=== PATIENT | female | born 1960 | race Caucasian/White ===

== ENCOUNTER 2016-08-22 02:51 | Emergency (ER) | payer SELFPAY ==
[~2016-08-22] VITALS: Ht 162.6 cm; Wt 67.0 kg
[2016-08-22 02:56] VITALS: Ht 162.6 cm; Wt 67.0 kg
--- NOTE | 2016-08-22 07:23 | ERA ---
ER Documentation Chief Complaint Date/Time DATE: 08/22/16 TIME: 07:19 Chief Complaint headache after inhaling pesticid spray with skin itchiness since 5pm yeste HPI This is an diabetic, but otherwise healthy 55-year-old female who presents 10 hours after inhaling fumes while trying to kill cockroaches. Patient denies any other medical history. Patient has not taken any medications. Patient denies recent travel, difficulty breathing, fever, change in voice, drooling, dyspnea, hematuria, abdominal pain, chest pain, shortness of breath, diarrhea, constipation, nausea, vomiting, dysgeusia, change in vision/hearing, or headache. Patient has no other complaints at this time. Patient states that she is feeling otherwise well but was brought in by the daughter who wanted her to be evaluated. ROS All systems reviewed and are negative except as per history of present illness. Allergies Allergies: Coded Allergies: No Known Allergy (Unverified , 08/22/16) PMhx/Soc History of Surgery: No Anesthesia Reaction: No Hx Neurological Disorder: No Hx Respiratory Disorders: No Hx Cardiac Disorders: No Hx Psychiatric Problems: No Hx Miscellaneous Medical Probl: Yes (DM) Hx Alcohol Use: Yes Hx Substance Use: No Hx Tobacco Use: No Smoking Status: Never smoker Physical Exam Vitals Vital Signs Date Time Temp Pulse Resp B/P Pulse Ox O2 Delivery O2 Flow Rate FiO2 08/22/16 02:56 98.3 109 20 128/80 99 Physical Exam Const: Healthy-appearing. Well-nourished. Well-developed. No acute distress. Head: Normocephalic, Atraumatic. Eyes: Non-injected; No scleral erythema, discharge or foreign body. EOMI and NEERAJ bilaterally. Ears: Normal External Ears, EACs clear, TM normal bilaterally without erythema. Nose: Normal nose without discharge, septal deviation, or sinus tenderness. Oral: No oral edema visualized. Mucous membranes moist and pink. Neck: No cervical lymphadenopathy, masses or goiter palpated. Full range of motion. Supple. Trachea midline. ~ No meningismus. Pulm: Good air movement in upper and lower respiratory tracts. No dyspnea, stridor, tripoding or drooling. Clear to auscultation bilaterally. Cardio: Regular rate and rhythm; No murmurs, gallops or rubs auscultated. No JVD grossly observed. Radial and posterior tibial pulses 2+ bilaterally. No cyanosis. Capillary refill less than 2 seconds. Abd: Soft, non tender, non distended. No guarding, masses. Normal bowel sounds. No McBurney's point tenderness. MS: Normal motor strength, normal tone with gross examination. Skin: No petechiae or rashes. No ulcer, induration, jaundice. Good turgor. Back: No midline, flank or CVA tenderness. Ext: No cyanosis, or edema. Normal movement of all extremities grossly observed. Neur: Awake, alert and oriented x3. Neurovascularly intact bilaterally. Psych: Normal Mood and Affect. Procedures/MDM Diabetic but otherwise healthy 55-year-old female presenting with a chief complaint of inhalation of gas is substance with cockroach killing chemicals. Patient denies any current medications. Patient states that she is otherwise fine and describes no symptoms at this time. Patient denies any shortness of breath, change in voice, drooling, altered mental status. States that she was just brought in to be evaluated because her daughter made her. At this time I very little suspicion for any endangerment of the airway. Patient's vitals are stable and her current condition is appropriate for discharge. Patient will be discharged with discharge instructions and return precautions. Departure Diagnosis: Primary Impression: Inhalation of gaseous substance Qualified Code: T59.91XA - Inhalation of gaseous substance, accidental or unintentional, initial encounter Condition: Stable Patient Instructions: Chemical Inhalation Additional Instructions: Andérs un seguimiento con ibrahim PCP dentro de los prximos 1-3 alvares para dwight evaluaci n ms completa y dwight posible derivacin a un especialista. Devuelva el departamento de emergencia inmediatamente si los sntomas empeoran o cambian. Si tiene alguna pregunta con respecto a los medicamentos, consulte con ibrahim farmac utico o con nosotros antes de salir. Si se producen reacciones adversas mientras marco gianluca medicamentos, suspenda el tratamiento y regrese inmediatamente al servicio de urgencias. Arnold Line gianluca medicamentos segn las indicaciones y complete el curso completo del tratamiento. MAULIK LAMAS PA-C Aug 22, 2016 07:22
== END 2016-08-22 03:39 | disposition home or self-care (01) ==
LOC: FTE 02:51
DX: T59.891A Toxic effect of other specified gases, fumes and vapors, accidental (unintentional), initial encounter (principal); E11.9 Type 2 diabetes mellitus without complications
CPT/HCPCS: 99282